=== PATIENT | female | born 1970 | race Caucasian/White ===

== ENCOUNTER 2022-06-10 23:25 | Inpatient (IN) | payer MEDICAID ==
[~2022-06-10] VITALS: Ht 170.2 cm; Wt 72.1 kg
[~2022-06-10 23:25] MED LIST: ALBU8HFA IH; HYDR-4808 PO; TRAM-559 PO
[2022-06-11 00:51] LABS: GLUCOMETER DEV NAME(LOC) POC.BV
[2022-06-11 00:54] VITALS: BP 136/68
[2022-06-11] MEDS ORDERED: TRAZ-252 PO (01:15)
[2022-06-11] MEDS ORDERED: LURA40TA2 PO (01:15)
[2022-06-11] MEDS ORDERED: GABA-1181 PO (01:15)
[2022-06-11] MEDS ORDERED: HYDR-4808 PO (01:15)
[2022-06-11] MEDS ORDERED: RISP0.5T39 PO (01:15)
[2022-06-11] MEDS ORDERED: PRAZ2 PO (01:15)
[2022-06-11] MEDS: ZOLPIDEM TARTRATE 10 MG TABLET PO PRN ×2 (01:30→21:31)
[2022-06-11 02:29] VITALS: BP 139/84
[2022-06-11] MEDS ORDERED: ONDANSETRON HCL 4 MG TABLET PO PRN (05:30)
[2022-06-11] MEDS ORDERED: CloNIDine HCL 0.1 MG TABLET PO PRN (05:30)
[2022-06-11] MEDS ORDERED: IBUPROFEN 600 MG TABLET PO PRN (05:30)
[2022-06-11] MEDS ORDERED: BACITRACIN 28 GM OINTMENT TP PRN (05:30)
[2022-06-11] MEDS ORDERED: MAG HYDROX/AL HYDROX/SIMETH ES 30 ML SUSPENSION UDCUP PO PRN (05:30)
[2022-06-11] MEDS ORDERED: PETROLATUM,WHITE 28 GM JELLY TP PRN (05:30)
[2022-06-11] MEDS ORDERED: OMEPRAZOLE 20 MG CAPSULE PO PRN (05:30)
[2022-06-11] MEDS ORDERED: DOCUSATE SODIUM 100 MG CAPSULE PO PRN (05:30)
[2022-06-11] MEDS ORDERED: MAGNESIUM HYDROXIDE SUSPENSION 30 ML UDCUP PO PRN (05:30)
[2022-06-11] MEDS ORDERED: ALBUTEROL SULFATE HFA 90 MCG/PUFF 8 GM INHALER IH PRN (05:30)
[2022-06-11] MEDS ORDERED: LOPERAMIDE HCL 2 MG CAPSULE PO PRN (05:30)
[2022-06-11] MEDS ORDERED: BENZOCAINE/MENTHOL LOZENGE PO PRN (05:30)
[2022-06-11] MEDS: LORazepam 2 MG TABLET PO PRN ×2 (08:31→15:13)
[2022-06-11 09:04] VITALS: BP 120/82
[2022-06-11] MEDS: HALOPERIDOL 5 MG TABLET PO PRN (15:12)
[2022-06-11] MEDS: RisperiDONE 1 MG TABLET PO SCH (18:42)
[2022-06-11] MEDS: DIVALPROEX SODIUM 500 MG DR TABLET PO SCH (18:42)
[2022-06-11] MEDS: LITHIUM CARBONATE 300 MG CAPSULE PO SCH (20:16)
[2022-06-11] MEDS: ACETAMINOPHEN 325 MG TABLET PO PRN (23:02)
[2022-06-12] MEDS: HALOPERIDOL 5 MG TABLET PO PRN (02:49)
[2022-06-12] MEDS: LORazepam 2 MG TABLET PO PRN ×3 (02:49→16:30)
[2022-06-12 03:39] VITALS: BP 113/91
[2022-06-12 07:14] LABS: BASOPHILS % (AUTO) 0.6 % (0.0-2.0); HEMATOCRIT 39.9 % (36-46); HEMOGLOBIN 13.6 g/dL (12.0-16.0); LYMPHOCYTES # (AUTO) 2.1 K/uL (1.0-4.8); LYMPHOCYTES % (AUTO) 40.5 % (22.0-44.0); MEAN CORPUSCULAR HEMOGLOBIN 30.9 pg (26.0-34.0); MEAN CORPUSCULAR VOLUME 91 fL (80-100); MONOCYTES # (AUTO) 0.5 K/uL (0.1-1.0); MONOCYTES % (AUTO) 10.1 % (2.0-9.0); NEUTROPHILS # (AUTO) 2.4 K/uL (1.8-7.7); NEUTROPHILS % (AUTO) 46.8 % (40.0-70.0); PLATELET COUNT (AUTO) 248 K/uL (150-450); RED BLOOD CELL COUNT(AUTO) 4.39 MIL/uL (4.00-5.20); RED CELL DISTRIBUTION WIDTH 13.5 % (11.5-14.5)
[2022-06-12 07:32] LABS: ALANINE AMINOTRANSFERASE 12 U/L (12-78); ALBUMIN 3.6 g/dL (3.4-5.0); ALKALINE PHOSPHATASE 83 U/L (46-116); ANION GAP 2 mmol/L (8-16); ASPARTATE AMINOTRANSFERASE 13 U/L (15-37); BILIRUBIN,TOTAL 0.7 mg/dL (0.1-1.0); CALCIUM, TOTAL 8.5 mg/dL (8.8-10.5); CARBON DIOXIDE 29 mmol/L (22-29); CHLORIDE 106 mmol/L (98-107); CHOL/HDL RATIO 3.4 (3.9-5.7); CHOLESTEROL 195 mg/dL (131-200); CREATININE 0.86 mg/dL (0.60-1.30); GLUCOSE,RANDOM 85 mg/dL (70-110); HDL CHOLESTEROL 58 mg/dL (40-60); LDL CHOL (CALC.) 125 mg/dL (0-130); POTASSIUM 4.3 mmol/L (3.5-5.1); SODIUM SERUM 137 mmol/L (136-145); TOTAL PROTEIN, SERUM 7.2 g/dL (6.4-8.2); TRIGLYCERIDES 61 mg/dL (15-150); UREA NITROGEN, BLOOD 13 mg/dL (7-18)
[2022-06-12 07:34] LABS: GLOMERULAR FILTR. RATE CALC > 60 mL/min (>60)
[2022-06-12 07:54] LABS: THYROID STIMULATING HORMONE 2.28 uIU/mL (0.36-3.74)
[2022-06-12] MEDS: DIVALPROEX SODIUM 500 MG DR TABLET PO SCH ×2 (08:52→16:29)
[2022-06-12] MEDS: LITHIUM CARBONATE 300 MG CAPSULE PO SCH ×2 (08:52→20:16)
[2022-06-12] MEDS: RisperiDONE 1 MG TABLET PO SCH ×2 (08:52→16:29)
[2022-06-12 20:04] VITALS: BP 124/63
[2022-06-12] MEDS: ZOLPIDEM TARTRATE 10 MG TABLET PO PRN (20:16)
[2022-06-13] MEDS: ACETAMINOPHEN 325 MG TABLET PO PRN (05:42)
[2022-06-13 08:30] VITALS: BP 111/68
[2022-06-13] MEDS: LITHIUM CARBONATE 300 MG CAPSULE PO SCH ×2 (10:08→20:29)
[2022-06-13] MEDS: DIVALPROEX SODIUM 500 MG DR TABLET PO SCH ×2 (10:08→16:51)
[2022-06-13] MEDS: RisperiDONE 1 MG TABLET PO SCH ×2 (10:09→16:51)
[2022-06-13] MEDS: LORazepam 2 MG TABLET PO PRN (10:41)
[2022-06-13 20:13] VITALS: BP 120/72
[2022-06-14] MEDS: LORazepam 2 MG TABLET PO PRN ×2 (06:10→14:19)
[2022-06-14] MEDS: HALOPERIDOL 5 MG TABLET PO PRN (06:10)
[2022-06-14 08:02] LABS: AMPHET/METH SCREEN,URINE POSITIVE (NEGATIVE); BARBITURATE SCREEN, URINE NEGATIVE (NEGATIVE); BENZODIAZEPINES SCREEN,URINE NEGATIVE (NEGATIVE); CANNABINOID SCREEN,URINE POSITIVE (NEGATIVE); COCAINE SCREEN,URINE NEGATIVE (NEGATIVE); METHADONE SCREEN, URINE NEGATIVE (NEGATIVE); OPIATE SCREEN,URINE NEGATIVE (NEGATIVE)
[2022-06-14] MEDS: RisperiDONE 1 MG TABLET PO SCH ×2 (08:04→16:43)
[2022-06-14] MEDS: LITHIUM CARBONATE 300 MG CAPSULE PO SCH ×2 (08:04→20:44)
[2022-06-14] MEDS: DIVALPROEX SODIUM 500 MG DR TABLET PO SCH ×2 (08:04→16:43)
[2022-06-14 08:17] VITALS: BP 104/74
[2022-06-14 08:54] LABS: APPEARANCE,URINE CLEAR (CLEAR); BILIRUBIN,URINE NEGATIVE (NEGATIVE); GLUCOSE, URINE (UA) NEGATIVE (NEGATIVE); LEUKOCYTE ESTERASE ,URINE TRACE (NEGATIVE); NITRATE,URINE NEGATIVE (NEGATIVE); OCCULT BLOOD,URINE NEGATIVE (NEGATIVE); PROTEIN,URINE TRACE mg/dL (NEGATIVE); SPECIFIC GRAVITIY, URINE 1.027 (1.003-1.030); UROBILINOGEN,URINE <=1.0 mg/dL (<=1.0)
[2022-06-14 08:58] LABS: PHENCYCLIDINE SCREEN,URINE NEGATIVE (NEGATIVE)
[2022-06-14 08:59] LABS: BACTERIA,URINE None Seen /HPF (None Seen); CALCIUM OXALATE CRYSTALS,UR Many /LPF (None Seen); RBC,URINE 0-2 /HPF (0-2); WBC,URINE 0-2 /HPF (0-5)
[2022-06-14 20:14] VITALS: BP 106/85
[2022-06-15 07:30] LABS: LITHIUM 0.48 mmol/L (0.60-1.20)
[2022-06-15 08:18] VITALS: BP 132/72
[2022-06-15] MEDS: RisperiDONE 1 MG TABLET PO SCH (08:25)
[2022-06-15] MEDS: LITHIUM CARBONATE 300 MG CAPSULE PO SCH (08:25)
[2022-06-15] MEDS: DIVALPROEX SODIUM 500 MG DR TABLET PO SCH (08:25)
[2022-06-15] MEDS ORDERED: LITH300C3 PO (12:40)
[2022-06-15] MEDS ORDERED: DIVA-112 PO (12:40)
[2022-06-15] MEDS ORDERED: RISP1TAB98 PO (12:40)
== END 2022-06-15 13:00 | disposition home or self-care (01) | DRG 753 ==
LOC: B3A 06-11 00:31 → B2S 06-11 19:52
PROVIDERS: ADMIT Psychiatry & Neurology Psychiatry; ATTEND Psychiatry & Neurology Psychiatry
DX: F31.9 Bipolar disorder, unspecified (principal); F12.90 Cannabis use, unspecified, uncomplicated; F41.9 Anxiety disorder, unspecified; J44.9 Chronic obstructive pulmonary disease, unspecified; K59.00 Constipation, unspecified; Z71.6 Tobacco abuse counseling
CPT/HCPCS: 80053; 80061; 80164; 80178; 80307; 81001; 84439; 84443; 85025; 87081; J3535